=== PATIENT | female | born 1950 ===

== ENCOUNTER → 2023-02-10 14:58 | Outpatient (BNVA) | payer MEDICARE, MEDICAID, SELFPAY | PROVIDERS: PCP Internal Medicine; Visit Provider Nurse Practitioner Family | DX: G25.81 Restless legs syndrome (principal); G47.52 REM sleep behavior disorder; G47.00 Insomnia, unspecified; R06.83 Snoring; R40.0 Somnolence; I10 Essential (primary) hypertension | CPT/HCPCS: 99202 ==